=== PATIENT | male | born 1960 | race Caucasian/White ===

== ENCOUNTER 2016-06-07 23:09 | Emergency (ER) | payer MEDICARE, MEDICAID ==
[~2016-06-07] VITALS: Ht 160 cm; Wt 70.3 kg
[~2016-06-07 23:09] MED LIST: OXYC-323 PO
[2016-06-07 23:27] VITALS: BP 136/70
[2016-06-07] MEDS ORDERED: TRAM50TA PO (23:54)
--- NOTE | 2016-06-07 23:54 | PHYS DOC ---
Past Medical History Past Medical History: Anxiety, Diabetes-Type II, High Cholesterol, Hypertension , Seizure Additional Past Medical Histor: CONCUSSION Past Surgical History: Other Additional Past Surgical Histo: shoulder, leg, JAW Additional Information: CHEWING TOBACCO Alcohol Use: Sober Drug Use: None Adult General Chief Complaint Chief Complaint: UPPER EXTREMITY PAIN [facility] HPI Patient is a 55 year old male presents emergency room today with ongoing right shoulder pain. Patient had a significant shoulder injury approximately 7 years ago in which she required reconstruction by her local orthopod, Dr. Kumar. Patient has had episodes of intermittent pain. He was last seen here May 09. Patient states that he has had not followed up with orthopedics. He states that his primary care doctor right now will not prescribe him oxycodone containing medication for his shoulder pain anymore. Review of Systems Review of Systems Constitutional: Denies fever or chills [] Eyes: Denies change in visual acuity, redness, or eye pain [] HENT: Denies nasal congestion or sore throat [] Respiratory: Denies cough or shortness of breath [] Cardiovascular: No additional information not addressed in HPI [] GI: Denies abdominal pain, nausea, vomiting, bloody stools or diarrhea [] : Denies dysuria or hematuria [] Musculoskeletal: Denies back pain or joint pain [] Integument: Denies rash or skin lesions [] Neurologic: Denies headache, focal weakness or sensory changes [] Endocrine: Denies polyuria or polydipsia [] Allergies Allergies Allergies Coded Allergies Type Severity Reaction Last Updated Verified codeine Allergy Intermediate itching 10/04/13 Yes Physical Exam Physical Exam Constitutional: Well developed, well nourished, no acute distress, non-toxic appearance. [] HENT: Normocephalic, atraumatic, bilateral external ears normal, oropharynx moist, no oral exudates, nose normal. [] Eyes: PERRLA, EOMI, conjunctiva normal, no discharge. [] Neck: Normal range of motion, no tenderness, supple, no stridor. [] Cardiovascular:Heart rate regular rhythm, no murmur [] Lungs & Thorax: Bilateral breath sounds clear to auscultation [] Abdomen: Bowel sounds normal, soft, no tenderness, no masses, no pulsatile masses. [] Skin: Warm, dry, no erythema, no rash. [] Back: No tenderness, no CVA tenderness. [] Extremities: No tenderness, no cyanosis, no clubbing, ROM intact, no edema. [] Neurologic: Alert and oriented X 3, normal motor function, normal sensory function, no focal deficits noted. [] Psychologic: Affect normal, judgement normal, mood normal. [] Current Patient Data Vital Signs Vital Signs Date Time Temp Pulse Resp B/P Pulse Ox O2 Delivery O2 Flow Rate FiO2 06/07/16 23:27 98.1 79 16 97 Room Air 98.1 EKG EKG [] Radiology/Procedures Radiology/Procedures [] Course & Med Decision Making Course & Med Decision Making Pertinent Labs and Imaging studies reviewed. (See chart for details) [] Dragon Disclaimer Dragon Disclaimer This electronic medical record was generated, in whole or in part, using a voice recognition dictation system. Departure Departure Impression: Primary Impression: Chronic shoulder pain Disposition: HOME, SELF-CARE Condition: GOOD Referrals: RAZ EM MD (PCP) NIEVES KUMAR MD Patient Instructions: Chronic Pain Management-Brief Additional Instructions: 1. Take the medication as prescribed. 2. Call Dr. Kumar's office in the morning to schedule follow-up appointment. 3. Call your primary care doctor's office as well as the morning and inform them that you were here in the emergency room today due to your chronic right shoulder pain. Scripts Tramadol Hcl 50 Mg Tablet1 Tab PO PRN Q6HRS #20 TAB Prov:YENY RIOS 06/07/16 YENY RIOS Jun 07, 2016 23:54
== END 2016-06-07 23:58 | disposition home or self-care (01) ==
LOC: ER 23:09
DX: G89.29 Other chronic pain (principal); M25.511 Pain in right shoulder; E11.9 Type 2 diabetes mellitus without complications; E78.00 Pure hypercholesterolemia, unspecified; I10 Essential (primary) hypertension; F17.220 Nicotine dependence, chewing tobacco, uncomplicated; Z88.5 Allergy status to narcotic agent
CPT/HCPCS: 99283

== ENCOUNTER 2016-07-07 04:18 | Emergency (ER) | payer MEDICARE, MEDICAID ==
[~2016-07-07] VITALS: Ht 160 cm; Wt 70.3 kg
[~2016-07-07 04:18] MED LIST changes: +TRAM50TA PO
[2016-07-07 04:31] VITALS: BP 124/68
[2016-07-07] MEDS ORDERED: NAPR500T8 PO (05:01)
--- NOTE | 2016-07-07 05:01 | PHYS DOC ---
Past Medical History Past Medical History: Anxiety, Diabetes-Type II, High Cholesterol, Hypertension , Seizure Additional Past Medical Histor: CONCUSSION Past Surgical History: Other Additional Past Surgical Histo: shoulder, leg, JAW Additional Information: chew tobacco Alcohol Use: Sober Drug Use: None Adult General Chief Complaint Chief Complaint: SHOULDER INJURY HPI HPI 55-year-old male who presents with atraumatic right shoulder pain that has been there chronically. Patient states he had a traumatic injury back in 2006 that has not given him chronic pain in his right shoulder. Patient states he does normally follow with orthopedic surgery but does not believe he has seen Dr. Kumar no last few months. He has not taken anything for his symptoms. He denies any trauma with his symptoms today. He states it's the usual chronic right shoulder pain 90s had before. Patient does have limited range of motion secondary to pain in that shoulder. He is now retired. He does not do any overhead lifting. He rates his pain a 6/10 on the pain scale localized to the right shoulder. Review of Systems Review of Systems Constitutional: Denies fever or chills [] Eyes: Denies change in visual acuity, redness, or eye pain [] HENT: Denies nasal congestion or sore throat [] Respiratory: Denies cough or shortness of breath [] Cardiovascular: No additional information not addressed in HPI [] GI: Denies abdominal pain, nausea, vomiting, bloody stools or diarrhea [] : Denies dysuria or hematuria [] Musculoskeletal: Denies back pain, has joint pain [] Integument: Denies rash or skin lesions [] Neurologic: Denies headache, focal weakness or sensory changes [] Endocrine: Denies polyuria or polydipsia [] Current Medications Current Medications Current Medications Medications (Trade) Dose Ordered Sig/[facility] Start Time Stop Time Status Last Admin Dose Admin Ketorolac Tromethamine (Toradol Im) 60 mg 1X ONCE 07/07/16 05:15 07/07/16 05:16 DC 07/07/16 05:05 60 MG Allergies Allergies Allergies Coded Allergies Type Severity Reaction Last Updated Verified codeine Allergy Intermediate itching 10/04/13 Yes Physical Exam Physical Exam Constitutional: Well developed, well nourished, no acute distress, non-toxic appearance. [] HENT: Normocephalic, atraumatic, bilateral external ears normal, oropharynx moist, no oral exudates, nose normal. [] Eyes: PERRLA, EOMI, conjunctiva normal, no discharge. [] Neck: Normal range of motion, no tenderness, supple, no stridor. [] Cardiovascular:Heart rate regular rhythm, no murmur [] Lungs & Thorax: Bilateral breath sounds clear to auscultation [] Abdomen: Bowel sounds normal, soft, no tenderness, no masses, no pulsatile masses. [] Skin: Warm, dry, no erythema, no rash. [] Back: No tenderness, no CVA tenderness. [] Extremities: Moderate tenderness to the right shoulder with no palpable deformity or swelling, no cyanosis, no clubbing, ROM limited in right shoulder secondary to pain, no edema. [] Neurologic: Alert and oriented X 3, normal motor function, normal sensory function, no focal deficits noted. [] Psychologic: Affect normal, judgement normal, mood normal. [] Current Patient Data Vital Signs Vital Signs Date Time Temp Pulse Resp B/P Pulse Ox O2 Delivery O2 Flow Rate FiO2 07/07/16 04:31 98 79 18 95 Room Air 98.0 EKG EKG [] Radiology/Procedures Radiology/Procedures [] Course & Med Decision Making Course & Med Decision Making Pertinent Labs and Imaging studies reviewed. (See chart for details) This 55 yo male with right shoulder pain will be discharged with a prescription for anti-inflammatories. He was given an IM injection of Toradol and the department. There is no indication at this time to perform any sort of imaging. This is the chronic shoulder pain that he has had before. He was discharged to follow-up with the orthopedic surgeon in the next several days. Dragon Disclaimer Dragon Disclaimer This electronic medical record was generated, in whole or in part, using a voice recognition dictation system. Departure Departure Impression: Primary Impression: Chronic shoulder pain Disposition: 01 HOME, SELF-CARE Admitting Physician: Other Condition: STABLE Referrals: RAZ EM MD (PCP) NIEVES KUMAR MD Patient Instructions: Shoulder Pain, [id number] Additional Instructions: Please avoid any strenuous activities in the right shoulder. Take your anti- inflammatories as prescribed. Return to the ER if you develop any worsening of your symptoms. Follow up with Dr. Kumar with orthopedics in the next 2-3 days. Scripts Naproxen 500 Mg Tablet.dr500 Mg PO BID #10 Prov:QUIANA HANDLEY DO 07/07/16 QUIANA HANDLEY DO Jul 07, 2016 05:01
[2016-07-07] MEDS ORDERED: KETOROLAC TROMETHAMINE 60 MG/2 ML SYRINGE. IM ONE (05:15)
== END 2016-07-07 05:12 | disposition home or self-care (01) ==
LOC: ER 04:18
DX: M25.511 Pain in right shoulder (principal); G89.29 Other chronic pain; E11.9 Type 2 diabetes mellitus without complications; E78.00 Pure hypercholesterolemia, unspecified; I10 Essential (primary) hypertension; F41.9 Anxiety disorder, unspecified; F17.200 Nicotine dependence, unspecified, uncomplicated; Z88.5 Allergy status to narcotic agent
CPT/HCPCS: 96372; 99283; J1885